=== PATIENT | male | born 1980 | race Caucasian/White ===

== ENCOUNTER 2016-08-04 03:22 | Emergency (ER) | payer BC ==
[2016-08-04] MEDS ORDERED: DIPH,PERTUS(ACELL)TETVAC-LF 0.5 ML VIAL IM ONE (03:24)
[2016-08-04] MEDS ORDERED: SODIUM CHLORIDE 0.9% 1,000 ML IV ONE (03:24)
--- NOTE | 2016-08-04 03:27 | ED ---
General Adult HPI - General Stated complaint: Fall, Syncope Time Seen by Provider: 08/04/16 03:22 Source: RN notes reviewed - History of Present Illness Initial comments: This is a 36-year-old male who states he had a few drinks this evening was smoking some marijuana he stood up to go to the kitchen any [place]ar[place] over and hit his head on a cabinet. Patient also states he hit his left side as well but is not sure on what. Patient states he believes he passed out. Patient denies any chest pain palpitations difficult breathing shortness of breath. Patient states he has been drinking a lot of coffee in the morning and monsters during the day while at work. Patient did not think he was dehydrated. Patient denies any recent fever or chills. Patient denies any abdominal pain patient denies nausea vomiting diarrhea. Patient complains of a mild headache at this time. Patient denies any numbness weakness. Patient denies any neck pain. - Related Data Home Medications Medication Instructions Recorded Confirmed No Known Home Medications [No 08/04/16 08/04/16 Known Home Medications] Allergies Allergy/AdvReac Type Severity Reaction Status Date / Time No Known Allergies Allergy Verified 08/04/16 03:46 Review of Systems ROS Statement: Those systems with pertinent positive or pertinent negative responses have been documented in the HPI. ROS Other: All systems not noted in ROS Statement are negative. General Exam - General Exam Comments Initial Comments: GENERAL: Patient is well-developed and well-nourished. Patient is nontoxic and well- hydrated and is in mild distress. ENT: Neck is soft and supple. No significant lymphadenopathy is noted. Oropharynx is clear. Moist mucous membranes. Neck has full range of motion without eliciting any pain. EYES: The sclera were anicteric and conjunctiva were pink and moist. Extraocular movements were intact and pupils were equal round and reactive to light. Eyelids were unremarkable. PULMONARY: Unlabored respirations. Good breath sounds bilaterally. No audible rales rhonchi or wheezing was noted. CARDIOVASCULAR: There is a regular rate and rhythm without any murmurs gallops or rubs. ABDOMEN: Soft and nontender with normal bowel sounds. SKIN: Patient has a 2 and half centimeter laceration to the right side of his forehead NEUROLOGIC: Patient is alert and oriented x3. Cranial nerves II through XII are grossly intact. Motor and sensory are also intact. Normal speech, volume and content. Symmetrical smile. MUSCULOSKELETAL: Normal extremities with adequate strength and full range of motion. LYMPHATICS: No significant lymphadenopathy is noted PSYCHIATRIC: Normal psychiatric evaluation. Normal interpersonal interactions appears functionally intact in deals appropriately with others. No signs of depression. No signs of anxiety. Course Vital Signs 08/04/16 03:25 Temperature 97.1 F L Pulse Rate 92 Respiratory 18 Rate Blood Pressure 111/58 O2 Sat by Pulse 100 Oximetry Procedures - Laceration Laceration #1 Consent Obtained: verbal consent Time Out Performed: Yes Site: face Description: linear Depth: simple, single layer Anesthesia Technique: local infiltration Pre-repair: wound explored Type of Sutures: nylon Size of Sutures: 5-0 Technique: simple, interrupted Patient Tolerated Procedure: well Medical Decision Making - Medical Decision Making EKG shows a sinus rhythm at 81 bpm PA interval 212 QRS is 90 QT interval 362 QTC is 420. Patient's EKG shows no significant ST segment elevation or depression CT of brain and C-spine showed no acute abnormalities. Patient is alert and oriented 3 patient could ambulate throughout the ER. Patient received a tetanus shot. - Lab Data Result diagrams: 08/04/16 03:30 08/04/16 03:30 Lab Results 08/04/16 08/04/16 08/04/16 Range/Units 03:30 03:30 03:30 WBC 13.8 H (3.8-10.6) k/uL RBC 4.67 (4.30-5.90) m/uL Hgb 15.4 (13.0-17.5) gm/dL Hct 44.8 (39.0-53.0) % MCV 95.8 (80.0-100.0) fL MCH 32.9 (25.0-35.0) pg MCHC 34.3 (31.0-37.0) g/dL RDW 13.9 (11.5-15.5) % Plt Count 249 (150-450) k/uL Neutrophils % (Manual) 53.0 % Lymphocytes % (Manual) 35.0 % Monocytes % (Manual) 8.0 % Eosinophils % (Manual) 4.0 % Neutrophils # (Manual) 7.3 (1.3-7.7) k/uL Lymphocytes # (Manual) 4.8 (1.0-4.8) k/uL Monocytes # (Manual) 1.1 H (0-1.0) k/uL Eosinophils # (Manual) 0.6 (0-0.7) k/uL Nucleated RBCs 0 (0-0) /100 WBC Manual Slide Review Performed Sodium (137-145) mmol/L Potassium (3.5-5.1) mmol/L Chloride (98-107) mmol/L Carbon Dioxide (22-30) mmol/L Anion Gap mmol/L BUN (9-20) mg/dL Creatinine (0.66-1.25) mg/dL Est GFR (MDRD) Af Amer (>60 ml/min/1.73 sqM) Est GFR (MDRD) Non-Af (>60 ml/min/1.73 sqM) Glucose (74-99) mg/dL POC Glucose (mg/dL) 96 (75-99) mg/dL POC Glu [employer] ID [place]ar[place] Calcium (8.4-10.2) mg/dL Total Bilirubin (0.2-1.3) mg/dL AST (17-59) U/L ALT (21-72) U/L Alkaline Phosphatase (38-126) U/L Total Creatine Kinase 119 (55-170) U/L CK-MB (CK-2) 2.5 H* (0.0-2.4) ng/mL CK-MB (CK-2) Rel Index 2.1 Troponin I <0.012 (0.000-0.034) ng/mL Total Protein (6.3-8.2) g/dL Albumin (3.5-5.0) g/dL 08/04/16 Range/Units 03:30 WBC (3.8-10.6) k/uL RBC (4.30-5.90) m/uL Hgb (13.0-17.5) gm/dL Hct (39.0-53.0) % MCV (80.0-100.0) fL MCH (25.0-35.0) pg MCHC (31.0-37.0) g/dL RDW (11.5-15.5) % Plt Count (150-450) k/uL Neutrophils % (Manual) % Lymphocytes % (Manual) % Monocytes % (Manual) % Eosinophils % (Manual) % Neutrophils # (Manual) (1.3-7.7) k/uL Lymphocytes # (Manual) (1.0-4.8) k/uL Monocytes # (Manual) (0-1.0) k/uL Eosinophils # (Manual) (0-0.7) k/uL Nucleated RBCs (0-0) /100 WBC Manual Slide Review Sodium 142 (137-145) mmol/L Potassium 3.2 L (3.5-5.1) mmol/L Chloride 106 (98-107) mmol/L Carbon Dioxide 24 (22-30) mmol/L Anion Gap 12 mmol/L BUN 16 (9-20) mg/dL Creatinine 0.86 (0.66-1.25) mg/dL Est GFR (MDRD) Af Amer >60 (>60 ml/min/1.73 sqM) Est GFR (MDRD) Non-Af >60 (>60 ml/min/1.73 sqM) Glucose 89 (74-99) mg/dL POC Glucose (mg/dL) (75-99) mg/dL POC Glu [employer] ID Calcium 9.1 (8.4-10.2) mg/dL Total Bilirubin 0.6 (0.2-1.3) mg/dL AST 28 (17-59) U/L ALT 32 (21-72) U/L Alkaline Phosphatase 49 (38-126) U/L Total Creatine Kinase (55-170) U/L CK-MB (CK-2) (0.0-2.4) ng/mL CK-MB (CK-2) Rel Index Troponin I (0.000-0.034) ng/mL Total Protein 6.9 (6.3-8.2) g/dL Albumin 4.3 (3.5-5.0) g/dL Disposition Clinical Impression: Syncope due to orthostatic hypotension Disposition: HOME SELF-CARE Condition: Good Instructions: Hypotension (ED), Near Syncope (ED) Referrals: None,Stated [Primary Care Provider] - 1-2 days Time of Disposition: 05:07
[2016-08-04 03:49] LABS: Glucose,Whole Blood 96 mg/dL (75-99)
[2016-08-04 04:21] LABS: CH 33.4; HCT 44.8 % (39.0-53.0); HDW 2.62; HGB 15.4 gm/dL (13.0-17.5); MCH 32.9 pg (25.0-35.0); MCHC 34.3 g/dL (31.0-37.0); MCV 95.8 fL (80.0-100.0); Mean Platelet Volume 7.4; RBC 4.67 m/uL (4.30-5.90); RDW 13.9 % (11.5-15.5); WBC 13.8 k/uL (3.8-10.6); WBC (Perox) 13.41
[2016-08-04 04:29] LABS: ALT 32 U/L (21-72); AST 28 U/L (17-59); Alkaline Phosphatase 49 U/L (38-126); Anion Gap 12 mmol/L; Blood Urea Nitrogen 16 mg/dL (9-20); Calcium 9.1 mg/dL (8.4-10.2); Carbon Dioxide 24 mmol/L (22-30); Chloride 106 mmol/L (98-107); Glucose 89 mg/dL (74-99); Non-African American GFR(MDRD) >60 (>60 ml/min/1.73 sqM); Potassium 3.2 mmol/L (3.5-5.1); Sodium 142 mmol/L (137-145); Total Bilirubin 0.6 mg/dL (0.2-1.3); Total Protein 6.9 g/dL (6.3-8.2)
--- NOTE | 2016-08-04 04:33 | CT ---
EXAM: CT Head Without Intravenous Contrast CLINICAL HISTORY: Reason: Pain, syncopal episode TECHNIQUE: Axial computed tomography images of the head/brain without intravenous contrast. . Sagittal and coronal reformats were reviewed. CTDI is 57 mGy and DLP is 1029 mGy-cm. This CT exam was performed using one or more of the following dose reduction techniques: automated exposure control, adjustment of the mA and/or kV according to patient size, and/or use of iterative reconstruction technique. COMPARISON: No relevant prior studies available. FINDINGS: Brain: Unremarkable. No hemorrhage. No significant white matter disease. No edema. Ventricles: Unremarkable. No ventriculomegaly. Bones/joints: Unremarkable. No acute fracture. Soft tissues: Unremarkable. Sinuses: Unremarkable as visualized. No acute sinusitis. Mastoid air cells: Unremarkable as visualized. No mastoid effusion. IMPRESSION: Normal head/brain CT. EXAM: CT Cervical Spine Without Intravenous Contrast CLINICAL HISTORY: Reason: Pain, syncopal episode TECHNIQUE: Axial computed tomography images of the cervical spine without intravenous contrast. Sagittal and coronal reformats were reviewed. CTDI is 14.6 mGy and DLP is 270 mGy-cm. This CT exam was performed using one or more of the following dose reduction techniques: automated exposure control, adjustment of the mA and/or kV according to patient size, and/or use of iterative reconstruction technique. COMPARISON: No relevant prior studies available. FINDINGS: Vertebrae: Unremarkable. No acute fracture. Discs/spinal canal/neural foramina: No acute findings. No spinal canal stenosis. Soft tissues: Unremarkable. Lung apices: Unremarkable as visualized. IMPRESSION: Normal cervical spine CT.
[2016-08-04 04:42] LABS: Creatine Kinase 119 U/L (55-170)
[2016-08-04 04:51] LABS: Add Differential Manual Differential
[2016-08-04 04:52] LABS: Manual Review Performed; Nucleated Red Blood Cells 0 /100 WBC (0-0); Total Cells Counted 100
[2016-08-04 04:55] LABS: Troponin I <0.012 ng/mL (0.000-0.034)
[2016-08-04 05:04] LABS: Creatine Kinase MB 2.5 ng/mL (0.0-2.4)
[2016-08-04] MEDS ORDERED: KETOROLAC 30 MG/ML 1 ML VIAL IVP STA (05:31)
[2016-08-04 05:48] VITALS: BP 115/65; PULSE 94; RESP 16; TEMP 97.6
== END 2016-08-04 05:45 | disposition home or self-care (01) ==
LOC: EC 03:22
DX: I95.1 Orthostatic hypotension (principal); S01.81XA Laceration without foreign body of other part of head, initial encounter; Z23 Encounter for immunization; W08.XXXA Fall from other furniture, initial encounter
CPT/HCPCS: 99285; 96374; 96361; 90471; 12011; 36415; 93005; 80053; 82550; 82553; 84484; 85025; 72125; 70450; 90715; J1885